=== PATIENT | female | born 1960 | race Caucasian/White ===

== ENCOUNTER 2020-09-06 13:27 | Outpatient (CLI) | payer MEDICARE | END 2020-09-06 13:28 | disposition home or self-care (01) | LOC: CSHMAMMO 13:27 | PROVIDERS: ATTEND Specialist | DX: M81.0 Age-related osteoporosis without current pathological fracture (principal) | CPT/HCPCS: 77080 ==

== ENCOUNTER 2021-02-20 14:36 | Outpatient (CLI) | payer MEDICARE | END 2021-02-20 14:37 | disposition home or self-care (01) | LOC: CSHMAMMO 14:36 | PROVIDERS: ATTEND Specialist | DX: Z12.31 Encounter for screening mammogram for malignant neoplasm of breast (principal); Z86.018 Personal history of other benign neoplasm | CPT/HCPCS: 77063; 77067 ==

== ENCOUNTER 2021-10-24 09:08 | Emergency (ER) | payer MEDICARE | END 2021-10-24 09:43 | disposition left against medical advice (07) | LOC: CSHERS 09:08 | DX: R30.0 Dysuria (principal); E03.9 Hypothyroidism, unspecified; M19.90 Unspecified osteoarthritis, unspecified site | CPT/HCPCS: 99282 ==

== ENCOUNTER 2022-02-21 11:49 | Outpatient (CLI) | payer MEDICARE | END 2022-02-21 11:50 | disposition home or self-care (01) | LOC: CSHMAMMO 11:49 | PROVIDERS: ATTEND Specialist | DX: Z12.31 Encounter for screening mammogram for malignant neoplasm of breast (principal); Z91.89 Other specified personal risk factors, not elsewhere classified | CPT/HCPCS: 77063; 77067 ==

== ENCOUNTER 2022-05-06 11:24 | Outpatient (CLI) | payer MEDICARE | END 2022-05-06 11:25 | disposition home or self-care (01) | LOC: CSHRAD 11:24 | PROVIDERS: ATTEND Orthopaedic Surgery | DX: M54.2 Cervicalgia (principal); Z98.890 Other specified postprocedural states | CPT/HCPCS: 72040 ==

== ENCOUNTER 2023-02-24 14:47 | Outpatient (CLI) | payer MEDICARE | END 2023-02-24 14:48 | disposition home or self-care (01) | LOC: CSHMAMMO 14:47 | PROVIDERS: ATTEND Family Medicine | DX: Z12.31 Encounter for screening mammogram for malignant neoplasm of breast (principal); Z13.820 Encounter for screening for osteoporosis; Z78.0 Asymptomatic menopausal state | CPT/HCPCS: 77063; 77067; 77080 ==

== ENCOUNTER 2024-07-13 12:47 | Emergency (ER) | payer MEDICARE ==
[~2024-07-13 12:47] MED LIST: Iopamidol 300 61% 100 ML VIAL FS ONE
[2024-07-13] MEDS ORDERED: Ketorolac Tromethamine 30 MG (1 mL) VIAL ONE (13:44)
[2024-07-13] MEDS ORDERED: Lidocaine Viscous Sol 2% 15 ml UD Cup ONE (13:44)
[2024-07-13] MEDS ORDERED: Dexamethasone 10 MG/ML VIAL ONE (13:45)
[2024-07-13 14:08] LABS: #Basophils Less than 0.03 10x3/uL (0.0-0.2); #Eosinophils 0.12 10x3/uL (0.0-0.5); #Monocytes 0.32 10x3/uL (0.0-1.1); #Neutrophils 2.58 10x3/uL (1.5-8.4); %Basophils 0.4 % (0.0-2.0); %Eosinophils 2.7 % (0.0-6.0); %Lymphocytes 32.4 % (18.0-47.0); %Monocytes 7.1 % (0.0-10.0); %Neutrophils 57.2 % (40.0-75.0); Hematocrit 37.2 % (34.9-44.5); Hemoglobin 12.3 g/dL (12.0-15.5); Mean Corpuscular HGB CONC 33.1 g/dL (32.0-36.0); Mean Corpuscular Volume 90.7 fL (81.6-98.3); Mean Platelet Volume 9.2 fL (7.4-10.4); Platelet Count 253 10x3/uL (150-450); RBC Distribution Width 12.7 % (11.5-14.5); White Blood Cell (WBC) Count 4.51 10x3/uL (3.5-10.5)
[2024-07-13 14:35] LABS: ALT (SGPT) 19 U/L (Less than 34); AST (SGOT) 26 U/L (11-34); Alkaline Phosphatase 54 U/L (40-110); Anion Gap 11 mmol/L (10-20); BUN (Urea Nitrogen) 21 mg/dL (9.8-20.1); Bilirubin, Total 0.3 mg/dL (0.3-1.2); Calc. Creatinine Clearance 0 mL/min (70-130); Calcium 9.1 mg/dL (7.8-10.44); Carbon Dioxide 27 mmol/L (23-31); Chloride 105 mmol/L (98-107); Estimated GFR 83; Globulin 2.8 g/dL (2.4-3.5); Glucose 101 mg/dL (80-115); Potassium 4.1 mmol/L (3.5-5.1); Protein, Total 6.8 g/dL (5.8-8.1); Sodium 139 mmol/L (136-145)
== END 2024-07-13 16:15 | disposition home or self-care (01) ==
LOC: CSHERS 12:47
DX: K12.1 Other forms of stomatitis (principal); R07.0 Pain in throat
CPT/HCPCS: 70491; 80053; 85025; J1100; J1885; 96374; Q9967

== ENCOUNTER 2025-02-21 14:09 | Outpatient (CLI) | payer MEDICARE | END 2025-02-21 14:10 | disposition home or self-care (01) | LOC: CSHRAD 14:09 | PROVIDERS: ATTEND Orthopaedic Surgery | DX: M54.2 Cervicalgia (principal); M54.50 Low back pain, unspecified; M46.1 Sacroiliitis, not elsewhere classified; Z98.890 Other specified postprocedural states; M47.812 Spondylosis without myelopathy or radiculopathy, cervical region | CPT/HCPCS: 72050; 72100; 72190 ==